=== PATIENT | male | born 1980 | race Caucasian/White ===

== ENCOUNTER 2016-09-27 17:41 | Emergency (ER) | payer BC ==
[2016-09-27] MEDS ORDERED: NO MEDICATIONS (17:45)
[2016-09-27 18:15] LABS: INFLUENZA A NEG (NEG); INFLUENZA B NEG (NEG)
== END 2016-09-27 18:30 | disposition home or self-care (01) ==
LOC: SED 17:41
PROVIDERS: Emergency Medicine
DX: B34.9 Viral infection, unspecified (principal); F17.200 Nicotine dependence, unspecified, uncomplicated
CPT/HCPCS: 87651; 87804; 99283